=== PATIENT | female | born 1960 | race Caucasian/White ===

== ENCOUNTER 2024-05-20 17:34 | Emergency (ER) | payer OTHER ==
[2024-05-20 18:36] LABS: BASE EXCESS ARTERIAL 0.5 (-2-2.0); BICARBONATE,ARTERIAL 23.3 meq/L (22.0-26.0); O2 SATURATION ARTERIAL 95.8 % (96.0-97.0); PCO2 ARTERIAL 32.9 mmHg (35.0-45.0)
[2024-05-20 18:38] LABS: BASOPHILS ABSOLUTE AUTO 0.1 K/mm3 (0.0-0.2); BASOPHILS PERCENT AUTO 0.3 % (0.0-1.0); EOSINOPHILS ABSOLUTE AUTO 0.2 K/mm3 (0.0-0.4); EOSINOPHILS PERCENT AUTO 1.2 % (0.0-6.0); HEMOGLOBIN 12.4 gm/dl (12.0-16.0); IMMATURE GRAN ABSOLUTE AUTO 0.09 K/mm3 (0.00-0.05); IMMATURE GRAN PERCENT AUTO 0.5 % (0.0-0.4); LYMPHOCYTES ABSOLUTE AUTO 0.7 K/mm3 (1.0-4.8); LYMPHOCYTES PERCENT AUTO 3.9 % (24.0-44.0); MEAN CORPUSCULAR HEMOGLOBIN 28.6 pg (28.0-32.0); MEAN CORPUSCULAR HGB CONC 31.8 g/dl (32.0-36.0); MEAN CORPUSCULAR VOLUME 89.9 fl (83.0-99.0); MEAN PLATELET VOLUME 12.4 fl (9.4-12.3); MONOCYTES ABSOLUTE AUTO 0.9 K/mm3 (0.0-0.8); MONOCYTES PERCENT AUTO 4.6 % (0.0-8.0); NEUTROPHILS ABSOLUTE AUTO 16.9 K/mm3 (1.8-7.7); NEUTROPHILS PERCENT AUTO 89.5 % (41.0-71.0); PLATELET COUNT,PLT 210 K/mm3 (150-400); RED BLOOD CELL COUNT 4.34 M/mm3 (4.10-5.30); WHITE BLOOD CELL COUNT,WBC 18.86 K/mm3 (3.9-11.3)
[2024-05-20 19:10] LABS: LACTIC ACID 2.4 mmol/L (0.4-2.0)
[2024-05-20 19:17] LABS: ALBUMIN 3.7 g/dl (3.4-5.0); BILIRUBIN TOTAL 0.8 mg/dL (0.2-1.0); BUN/CREATININE RATIO 22.9 (14-18); CALCIUM 8.8 mg/dL (8.5-10.1); CREATININE 2.1 mg/dL (0.55-1.02); EST CRCL DRUG DOSING (CG) 22.68 mL/min; MAGNESIUM 1.4 mg/dL (1.8-2.4); PROTEIN TOTAL,TP 7.4 g/dl (6.4-8.2)
[2024-05-20] MEDS ORDERED: Sodium Chloride 0.9% 100 ML IV SCH (20:30)
[2024-05-20] MEDS: Sodium Chloride 0.9% 1,000 ML IV SCH (20:40)
[2024-05-20 20:54] LABS: CORONAVIRUS COVID-19 NAA NEGATIVE (NEGATIVE); INFLUENZA A NAA NEGATIVE (NEGATIVE); RESPIRATORY SYNCYTIAL VIR NAA NEGATIVE (NEGATIVE)
[2024-05-20] MEDS: Iopamidol 755 Mg/ML 100 ML Bottle IVPUSH ONE (21:41)
[2024-05-20] MEDS: cefTRIAXone 1 GM in Sodium Chloride 0.9% 100 ML IV ONE (22:06)
[2024-05-20 22:52] LABS: APPEARANCE,URINE CLEAR (Clear); BILIRUBIN,URINE NEGATIVE (Negative); COLOR,URINE YELLOW (Yellow); GLUCOSE,URINE NEGATIVE (Negative); KETONES,URINE NEGATIVE (Negative); LEUKOCYTE ESTERASE,URINE 2+ (Negative); NITRITE,URINE NEGATIVE (Negative); OCCULT BLOOD,URINE NEGATIVE (Negative); PROTEIN,URINE NEGATIVE (Negative); UROBILINOGEN,URINE 0.2 (0.2-1.0)
[2024-05-20 23:04] LABS: BACTERIA,URINE MODERATE /hpf (FEW); EPITHELIAL CELLS,URINE 0-5 /hpf (0-5); MUCUS,URINE FEW /hpf (FEW); RBC,URINE 0-5 /hpf (0-5); WBC,URINE 30-40 /hpf (0-5)
== END 2024-05-20 23:48 | disposition home or self-care (01) ==
LOC: JD.ED 17:34
DX: R42 Dizziness and giddiness (principal); I11.0 Hypertensive heart disease with heart failure; I50.9 Heart failure, unspecified; Z79.899 Other long term (current) drug therapy
CPT/HCPCS: 0241U; 36415; 36600; 70450; 71045; 71275; 80053; 81001; 82803; 82947; 83605; 83735; 83880; 84484; 85025; 85379; 87040; 87086; 93005; 96361; 96365; 96366; 99285; J0696; J3490; J7030; Q9967; 93010; 99284

== ENCOUNTER 2024-07-09 15:38 | Inpatient (IN) | payer OTHER ==
[2024-07-09] MEDS ORDERED: Sodium Chloride 0.9% 10 ML Syringe FLUSH PRN (16:02)
[2024-07-09 16:27] LABS: HEMATOCRIT 39.6 % (37.0-47.0); HEMOGLOBIN 12.6 gm/dl (12.0-16.0); MEAN CORPUSCULAR HEMOGLOBIN 28.8 pg (28.0-32.0); MEAN CORPUSCULAR HGB CONC 31.8 g/dl (32.0-36.0); MEAN CORPUSCULAR VOLUME 90.4 fl (83.0-99.0); MEAN PLATELET VOLUME 12.3 fl (9.4-12.3); PLATELET COUNT,PLT 219 K/mm3 (150-400); RED BLOOD CELL COUNT 4.38 M/mm3 (4.10-5.30); WHITE BLOOD CELL COUNT,WBC 13.98 K/mm3 (3.9-11.3)
[2024-07-09 16:34] LABS: INR 1.02; PROTHROMBIN TIME 10.8 SECONDS (9.7-12.0)
[2024-07-09 16:55] LABS: LACTIC ACID 1.6 mmol/L (0.4-2.0)
[2024-07-09 16:57] LABS: A/G RATIO 0.7 (1-2); ALANINE AMINOTRANSFERASE,ALT 23 U/L (14-59); ALKALINE PHOSPHATASE 131 U/L (46-116); ANION GAP 16.6 (5-15); ASPARTATE AMNIOTRANSFERASE,AST 16 U/L (15-37); BAND PERCENT MAN 1 % (0-10); BASOPHILS PERCENT MAN 0 (0.1-1.2); BILIRUBIN TOTAL 1.4 mg/dL (0.2-1.0); BLOOD UREA NITROGEN,BUN 19 mg/dL (7-18); BUN/CREATININE RATIO 12.7 (14-18); CALCIUM 8.7 mg/dL (8.5-10.1); CARBON DIOXIDE,CO2 23 mEq/L (21-32); CHLORIDE,CL 105 mEq/L (98-107); CREATININE 1.5 mg/dL (0.55-1.02); EOSINOPHILS PERCENT MAN 1 % (0.7-5.8); EST CRCL DRUG DOSING (CG) 31.76 mL/min; ESTIMATED GFR 39 mL/min (>60); GLUCOSE RANDOM 130 mg/dL (70-99); LYMPHOCYTES % ATYPICAL MANUAL 3 %; LYMPHOCYTES PERCENT MAN 12 % (20-40); MONOCYTES PERCENT MAN 3 % (2-10); POTASSIUM,K 3.6 mEq/L (3.5-5.1); PROTEIN TOTAL,TP 7.2 g/dl (6.4-8.2); SODIUM,NA 141 mEq/L (136-145)
[2024-07-09 16:58] LABS: PLATELET COUNT ESTIMATE ADEQUATE; TOXIC GRANULATION FEW
[2024-07-09 17:11] LABS: C-REACTIVE PROTEIN > 25.00 mg/dL (<0.30)
[2024-07-09] MEDS: Sodium Chloride 0.9% 1,000 ML IV STA (17:14)
[2024-07-09] MEDS: Diltiazem 25 MG/5 ML SDV IVPUSH ONE (17:21)
[2024-07-09 17:30] LABS: CORONAVIRUS COVID-19 NAA NEGATIVE (NEGATIVE); INFLUENZA A NAA NEGATIVE (NEGATIVE); RESPIRATORY SYNCYTIAL VIR NAA NEGATIVE (NEGATIVE)
[2024-07-09] MEDS ORDERED: Diltiazem 125 MG in Sodium Chloride 0.9% 100 ML IV SCH (17:30)
[2024-07-09] MEDS: cefTRIAXone 2 GM in Sodium Chloride 0.9% 100 ML IV ONE (17:39)
[2024-07-09] MEDS ORDERED: Acetaminophen 325 MG Tab PO PRN (18:37)
[2024-07-09 19:28] LABS: TSH 2.501 uIU/mL (0.358-3.74)
[2024-07-09] MEDS: guaiFENesin 600 MG Tab.ER PO SCH (21:46)
[2024-07-09] MEDS: atorvaSTATin 40 MG Tab PO SCH (21:46)
[2024-07-09] MEDS: Heparin Sodium 5,000 Units/ML Vial SUBCUT SCH (21:46)
[2024-07-09] MEDS: Doxycycline 100 MG in Sodium Chloride 0.9% 100 ML IV SCH (21:48)
[2024-07-10 04:51] LABS: BASOPHILS ABSOLUTE AUTO 0.1 K/mm3 (0.0-0.2); BASOPHILS PERCENT AUTO 0.5 % (0.0-1.0); EOSINOPHILS ABSOLUTE AUTO 0.2 K/mm3 (0.0-0.4); EOSINOPHILS PERCENT AUTO 1.5 % (0.0-6.0); HEMATOCRIT 34.1 % (37.0-47.0); IMMATURE GRAN ABSOLUTE AUTO 0.19 K/mm3 (0.00-0.05); IMMATURE GRAN PERCENT AUTO 1.3 % (0.0-0.4); LYMPHOCYTES ABSOLUTE AUTO 1.2 K/mm3 (1.0-4.8); LYMPHOCYTES PERCENT AUTO 8.7 % (24.0-44.0); MEAN CORPUSCULAR HEMOGLOBIN 28.3 pg (28.0-32.0); MEAN CORPUSCULAR HGB CONC 31.7 g/dl (32.0-36.0); MEAN CORPUSCULAR VOLUME 89.5 fl (83.0-99.0); MEAN PLATELET VOLUME 12.2 fl (9.4-12.3); MONOCYTES ABSOLUTE AUTO 1.6 K/mm3 (0.0-0.8); MONOCYTES PERCENT AUTO 11.5 % (0.0-8.0); NEUTROPHILS ABSOLUTE AUTO 10.8 K/mm3 (1.8-7.7); NEUTROPHILS PERCENT AUTO 76.5 % (41.0-71.0); PLATELET COUNT,PLT 178 K/mm3 (150-400); RED BLOOD CELL COUNT 3.81 M/mm3 (4.10-5.30)
[2024-07-10 04:53] LABS: HEMOGLOBIN 10.8 gm/dl (12.0-16.0)
[2024-07-10 05:15] LABS: A/G RATIO 0.7 (1-2); ALANINE AMINOTRANSFERASE,ALT 16 U/L (14-59); ALBUMIN 2.5 g/dl (3.4-5.0); ALKALINE PHOSPHATASE 128 U/L (46-116); ANION GAP 13.9 (5-15); ASPARTATE AMNIOTRANSFERASE,AST 16 U/L (15-37); BILIRUBIN TOTAL 1.1 mg/dL (0.2-1.0); BLOOD UREA NITROGEN,BUN 21 mg/dL (7-18); CALCIUM 8.4 mg/dL (8.5-10.1); CARBON DIOXIDE,CO2 23 mEq/L (21-32); CHLORIDE,CL 107 mEq/L (98-107); CREATININE 1.4 mg/dL (0.55-1.02); EST CRCL DRUG DOSING (CG) 34.02 mL/min; ESTIMATED GFR 42 mL/min (>60); GLUCOSE RANDOM 134 mg/dL (70-99); POTASSIUM,K 3.9 mEq/L (3.5-5.1); PROTEIN TOTAL,TP 6.3 g/dl (6.4-8.2); SODIUM,NA 140 mEq/L (136-145)
[2024-07-10] MEDS: Levothyroxine 25 MCG Tab PO SCH (05:17)
[2024-07-10] MEDS: Albuterol/Ipratropium 3.0-0.5 MG/3 ML Neb Soln NEB PRN (05:25)
[2024-07-10 05:28] LABS: SLIDE REVIEW ABNORMAL SMEAR
[2024-07-10 05:47] LABS: C-REACTIVE PROTEIN > 25.00 mg/dL (<0.30)
[2024-07-10] MEDS: ARIPiprazole 5 MG Tab PO SCH (08:27)
[2024-07-10] MEDS: DULoxetine 30 MG Cap PO SCH (08:27)
[2024-07-10] MEDS: Aspirin 81 MG Tab.EC PO SCH (08:28)
[2024-07-10] MEDS ORDERED: Enoxaparin 40 MG/0.4 ML Syringe SUBCUT SCH (09:00)
[2024-07-10] MEDS: Torsemide 20 MG Tab PO SCH (11:19)
[2024-07-10] MEDS: Magnesium Sulfate/Water Premix 2 GM in Premix Bag 1 BAG IV ONE (15:48)
[2024-07-10] MEDS: cefTRIAXone 1 GM Vial IM SCH (18:09)
[2024-07-10 19:06] LABS: APPEARANCE,URINE CLEAR (Clear); BILIRUBIN,URINE 1+ (Negative); COLOR,URINE AMBER (Yellow); GLUCOSE,URINE NEGATIVE (Negative); KETONES,URINE TRACE (Negative); LEUKOCYTE ESTERASE,URINE NEGATIVE (Negative); NITRITE,URINE NEGATIVE (Negative); OCCULT BLOOD,URINE NEGATIVE (Negative); PH,URINE 5.5 (5.0-8.0); PROTEIN,URINE 1+ (Negative)
[2024-07-10 19:19] LABS: BACTERIA,URINE MANY /hpf (FEW); MUCUS,URINE FEW /hpf (FEW); RBC,URINE 0-5 /hpf (0-5)
[2024-07-10] MEDS: cefTRIAXone 1 GM in Sodium Chloride 0.9% 100 ML IV SCH (19:35)
[2024-07-11] MEDS: Metoprolol Tartrate 5 MG/5 ML SDV IVPUSH ONE ×3 (00:19→05:21)
[2024-07-11] MEDS: Diltiazem 25 MG/5 ML SDV IVPUSH ONE ×2 (01:01→08:27)
[2024-07-11 05:52] LABS: BASOPHILS ABSOLUTE AUTO 0.1 K/mm3 (0.0-0.2); BASOPHILS PERCENT AUTO 0.9 % (0.0-1.0); EOSINOPHILS ABSOLUTE AUTO 0.5 K/mm3 (0.0-0.4); EOSINOPHILS PERCENT AUTO 4.4 % (0.0-6.0); HEMATOCRIT 35.2 % (37.0-47.0); IMMATURE GRAN PERCENT AUTO 2.6 % (0.0-0.4); LYMPHOCYTES ABSOLUTE AUTO 1.2 K/mm3 (1.0-4.8); LYMPHOCYTES PERCENT AUTO 10.2 % (24.0-44.0); MEAN CORPUSCULAR HEMOGLOBIN 28.2 pg (28.0-32.0); MEAN CORPUSCULAR HGB CONC 31.3 g/dl (32.0-36.0); MEAN CORPUSCULAR VOLUME 90.3 fl (83.0-99.0); MEAN PLATELET VOLUME 12.7 fl (9.4-12.3); MONOCYTES ABSOLUTE AUTO 1.1 K/mm3 (0.0-0.8); NEUTROPHILS ABSOLUTE AUTO 8.6 K/mm3 (1.8-7.7); NEUTROPHILS PERCENT AUTO 72.9 % (41.0-71.0); PLATELET COUNT,PLT 209 K/mm3 (150-400); WHITE BLOOD CELL COUNT,WBC 11.71 K/mm3 (3.9-11.3)
[2024-07-11 06:19] LABS: A/G RATIO 0.6 (1-2); ALANINE AMINOTRANSFERASE,ALT 21 U/L (14-59); ALBUMIN 2.5 g/dl (3.4-5.0); ALKALINE PHOSPHATASE 140 U/L (46-116); ANION GAP 16.6 (5-15); ASPARTATE AMNIOTRANSFERASE,AST 21 U/L (15-37); BILIRUBIN TOTAL 0.6 mg/dL (0.2-1.0); BLOOD UREA NITROGEN,BUN 28 mg/dL (7-18); BUN/CREATININE RATIO 16.5 (14-18); CALCIUM 8.5 mg/dL (8.5-10.1); CARBON DIOXIDE,CO2 22 mEq/L (21-32); CHLORIDE,CL 101 mEq/L (98-107); CREATININE 1.7 mg/dL (0.55-1.02); EST CRCL DRUG DOSING (CG) 28.02 mL/min; ESTIMATED GFR 33 mL/min (>60); GLUCOSE RANDOM 131 mg/dL (70-99); POTASSIUM,K 3.6 mEq/L (3.5-5.1); PROTEIN TOTAL,TP 6.6 g/dl (6.4-8.2); SODIUM,NA 136 mEq/L (136-145)
[2024-07-11 06:29] LABS: C-REACTIVE PROTEIN > 25.00 mg/dL (<0.30)
[2024-07-11] MEDS: Apixaban 5 MG Tab PO SCH (08:09)
[2024-07-11] MEDS: Furosemide 40 MG/4 ML VIAL IVPUSH ONE ×2 (08:11→08:20)
[2024-07-11] MEDS: Magnesium Sulfate/Water Premix 4 GM in Premix Bag 1 BAG IV ONE (08:17)
[2024-07-11] MEDS: Diltiazem 120 MG Cap.CD PO SCH (11:54)
[2024-07-11] MEDS: Pantoprazole 40 MG Tab.CR PO ONE (19:46)
[2024-07-12 05:48] LABS: BASOPHILS ABSOLUTE AUTO 0.1 K/mm3 (0.0-0.2); BASOPHILS PERCENT AUTO 0.9 % (0.0-1.0); EOSINOPHILS ABSOLUTE AUTO 0.4 K/mm3 (0.0-0.4); EOSINOPHILS PERCENT AUTO 3.3 % (0.0-6.0); HEMATOCRIT 32.9 % (37.0-47.0); HEMOGLOBIN 10.6 gm/dl (12.0-16.0); IMMATURE GRAN ABSOLUTE AUTO 0.59 K/mm3 (0.00-0.05); IMMATURE GRAN PERCENT AUTO 4.9 % (0.0-0.4); LYMPHOCYTES ABSOLUTE AUTO 1.2 K/mm3 (1.0-4.8); LYMPHOCYTES PERCENT AUTO 10.2 % (24.0-44.0); MEAN CORPUSCULAR HEMOGLOBIN 28.3 pg (28.0-32.0); MEAN CORPUSCULAR HGB CONC 32.2 g/dl (32.0-36.0); MEAN PLATELET VOLUME 12.2 fl (9.4-12.3); MONOCYTES ABSOLUTE AUTO 1.2 K/mm3 (0.0-0.8); MONOCYTES PERCENT AUTO 10.3 % (0.0-8.0); NEUTROPHILS ABSOLUTE AUTO 8.5 K/mm3 (1.8-7.7); NEUTROPHILS PERCENT AUTO 70.4 % (41.0-71.0); PLATELET COUNT,PLT 225 K/mm3 (150-400); RED BLOOD CELL COUNT 3.74 M/mm3 (4.10-5.30); WHITE BLOOD CELL COUNT,WBC 12.06 K/mm3 (3.9-11.3)
[2024-07-12] MEDS: Pantoprazole 40 MG Tab.CR PO SCH (06:06)
[2024-07-12 06:11] LABS: A/G RATIO 0.6 (1-2); ALBUMIN 2.5 g/dl (3.4-5.0); ANION GAP 15.3 (5-15); BILIRUBIN TOTAL 0.5 mg/dL (0.2-1.0); BUN/CREATININE RATIO 20.6 (14-18); C-REACTIVE PROTEIN 21.4 mg/dL (<0.30); CALCIUM 8.7 mg/dL (8.5-10.1); CREATININE 1.7 mg/dL (0.55-1.02); EST CRCL DRUG DOSING (CG) 28.02 mL/min; POTASSIUM,K 3.3 mEq/L (3.5-5.1); PROTEIN TOTAL,TP 6.9 g/dl (6.4-8.2)
[2024-07-12 06:18] LABS: SLIDE REVIEW ABNORMAL SMEAR
[2024-07-12] MEDS: Diltiazem 240 MG Cap.ER PO SCH (08:10)
[2024-07-12] MEDS: Spironolactone 25 MG Tab PO SCH (08:11)
[2024-07-12] MEDS: Furosemide 40 MG/4 ML VIAL IVPUSH SCH (09:06)
[2024-07-12] MEDS: Metoprolol Tartrate 5 MG/5 ML SDV IV ONE (10:24)
[2024-07-12] MEDS: Metoprolol Tartrate 5 MG in Sodium Chloride 0.9% 50 ML IV ONE (10:34)
[2024-07-12] MEDS: Furosemide 40 MG/4 ML VIAL IVPUSH ONE (15:17)
[2024-07-12] MEDS: Diltiazem 25 MG/5 ML SDV IVPUSH ONE ×2 (17:54→19:25)
[2024-07-12] MEDS: Metolazone 2.5 MG Tab PO ONE (19:18)
[2024-07-12] MEDS: Diltiazem 125 MG in Sodium Chloride 0.9% 100 ML IV SCH (19:48)
[2024-07-13 05:34] LABS: BASOPHILS ABSOLUTE AUTO 0.1 K/mm3 (0.0-0.2); BASOPHILS PERCENT AUTO 0.4 % (0.0-1.0); EOSINOPHILS ABSOLUTE AUTO 0.4 K/mm3 (0.0-0.4); EOSINOPHILS PERCENT AUTO 2.8 % (0.0-6.0); HEMOGLOBIN 10.8 gm/dl (12.0-16.0); IMMATURE GRAN ABSOLUTE AUTO 0.93 K/mm3 (0.00-0.05); IMMATURE GRAN PERCENT AUTO 7.1 % (0.0-0.4); LYMPHOCYTES ABSOLUTE AUTO 1.4 K/mm3 (1.0-4.8); LYMPHOCYTES PERCENT AUTO 10.6 % (24.0-44.0); MEAN CORPUSCULAR HEMOGLOBIN 27.8 pg (28.0-32.0); MEAN CORPUSCULAR HGB CONC 31.8 g/dl (32.0-36.0); MEAN CORPUSCULAR VOLUME 87.4 fl (83.0-99.0); MEAN PLATELET VOLUME 12.5 fl (9.4-12.3); MONOCYTES ABSOLUTE AUTO 1.5 K/mm3 (0.0-0.8); MONOCYTES PERCENT AUTO 11.2 % (0.0-8.0); NEUTROPHILS ABSOLUTE AUTO 8.9 K/mm3 (1.8-7.7); NEUTROPHILS PERCENT AUTO 67.9 % (41.0-71.0); PLATELET COUNT,PLT 247 K/mm3 (150-400); RED BLOOD CELL COUNT 3.89 M/mm3 (4.10-5.30); WHITE BLOOD CELL COUNT,WBC 13.16 K/mm3 (3.9-11.3)
[2024-07-13 05:46] LABS: A/G RATIO 0.6 (1-2); ALBUMIN 2.5 g/dl (3.4-5.0); ANION GAP 14.1 (5-15); BILIRUBIN TOTAL 0.5 mg/dL (0.2-1.0); BUN/CREATININE RATIO 21.1 (14-18); C-REACTIVE PROTEIN 16.67 mg/dL (<0.30); CALCIUM 8.8 mg/dL (8.5-10.1); CREATININE 1.9 mg/dL (0.55-1.02); EST CRCL DRUG DOSING (CG) 25.07 mL/min; POTASSIUM,K 3.1 mEq/L (3.5-5.1)
[2024-07-13 06:21] LABS: SLIDE REVIEW ABNORMAL SMEAR
[2024-07-13] MEDS: Potassium Chloride 20 MEQ Tab.ER PO SCH (08:39)
[2024-07-13] MEDS ORDERED: Metoclopramide 10 MG/2 ML SDV IVPUSH ONE (18:37)
[2024-07-13] MEDS: Metoprolol Tartrate 25 MG Tab PO SCH (18:47)
[2024-07-13] MEDS: Metoprolol Tartrate 5 MG/5 ML SDV IVPUSH ONE (18:53)
[2024-07-14 04:46] LABS: HEMATOCRIT 37.1 % (37.0-47.0); HEMOGLOBIN 11.8 gm/dl (12.0-16.0); MEAN CORPUSCULAR HEMOGLOBIN 28.1 pg (28.0-32.0); MEAN CORPUSCULAR HGB CONC 31.8 g/dl (32.0-36.0); MEAN CORPUSCULAR VOLUME 88.3 fl (83.0-99.0); MEAN PLATELET VOLUME 12.5 fl (9.4-12.3); PLATELET COUNT,PLT 217 K/mm3 (150-400); WHITE BLOOD CELL COUNT,WBC 12.68 K/mm3 (3.9-11.3)
[2024-07-14 05:49] LABS: A/G RATIO 0.6 (1-2); ALBUMIN 2.6 g/dl (3.4-5.0); ANION GAP 15.5 (5-15); BILIRUBIN TOTAL 0.5 mg/dL (0.2-1.0); BUN/CREATININE RATIO 23.3 (14-18); C-REACTIVE PROTEIN 13.8 mg/dL (<0.30); CREATININE 1.8 mg/dL (0.55-1.02); EST CRCL DRUG DOSING (CG) 26.46 mL/min; MAGNESIUM 1.9 mg/dL (1.8-2.4); POTASSIUM,K 3.5 mEq/L (3.5-5.1); PROTEIN TOTAL,TP 7.2 g/dl (6.4-8.2)
[2024-07-15 05:37] LABS: HEMATOCRIT 36.4 % (37.0-47.0); HEMOGLOBIN 11.4 gm/dl (12.0-16.0); MEAN CORPUSCULAR HEMOGLOBIN 28.3 pg (28.0-32.0); MEAN CORPUSCULAR HGB CONC 31.3 g/dl (32.0-36.0); MEAN CORPUSCULAR VOLUME 90.3 fl (83.0-99.0); MEAN PLATELET VOLUME 12.4 fl (9.4-12.3); PLATELET COUNT,PLT 251 K/mm3 (150-400); RED BLOOD CELL COUNT 4.03 M/mm3 (4.10-5.30); WHITE BLOOD CELL COUNT,WBC 13.88 K/mm3 (3.9-11.3)
[2024-07-15 05:45] LABS: A/G RATIO 0.6 (1-2); ALBUMIN 2.5 g/dl (3.4-5.0); ANION GAP 13.6 (5-15); BILIRUBIN TOTAL 0.4 mg/dL (0.2-1.0); BUN/CREATININE RATIO 27.9 (14-18); C-REACTIVE PROTEIN 8.81 mg/dL (<0.30); CALCIUM 9.1 mg/dL (8.5-10.1); CREATININE 1.4 mg/dL (0.55-1.02); EST CRCL DRUG DOSING (CG) 34.02 mL/min; MAGNESIUM 1.8 mg/dL (1.8-2.4); POTASSIUM,K 3.6 mEq/L (3.5-5.1); PROTEIN TOTAL,TP 6.9 g/dl (6.4-8.2)
== END 2024-07-15 10:40 | disposition home or self-care (01) | DRG 871 ==
LOC: JD.ED 15:38 → JD.MS 18:38 → JD.ICU 07-12 20:57
PROVIDERS: ADMIT Family Medicine; ATTEND Internal Medicine
DX: A41.9 Sepsis, unspecified organism (principal); J18.9 Pneumonia, unspecified organism; J96.01 Acute respiratory failure with hypoxia; Z68.44 Body mass index [BMI] 60.0-69.9, adult; N17.9 Acute kidney failure, unspecified; I13.0 Hypertensive heart and chronic kidney disease with heart failure and stage 1 through stage 4 chronic kidney disease, or unspecified chronic kidney disease; I48.92 Unspecified atrial flutter; K21.9 Gastro-esophageal reflux disease without esophagitis; E03.9 Hypothyroidism, unspecified; I48.91 Unspecified atrial fibrillation; E66.9 Obesity, unspecified; F32.A Depression, unspecified; M19.90 Unspecified osteoarthritis, unspecified site; E78.00 Pure hypercholesterolemia, unspecified; I50.9 Heart failure, unspecified; E83.42 Hypomagnesemia; N18.9 Chronic kidney disease, unspecified; Z79.82 Long term (current) use of aspirin; Z86.16 Personal history of COVID-19; Z90.49 Acquired absence of other specified parts of digestive tract; Z79.01 Long term (current) use of anticoagulants; Z79.890 Hormone replacement therapy; Z79.899 Other long term (current) drug therapy; Z90.710 Acquired absence of both cervix and uterus; Z98.890 Other specified postprocedural states
CPT/HCPCS: 0241U; 36410; 36415; 71046; 71046-26; 80053; 81001; 83605; 83735; 83880; 84443; 84484; 85007; 85025; 85027; 85610; 86140; 87040; 87899; 93005; 93010; 93306; 94640; 94760; 94761; 99223; 99232; 99233; 99285; A9270-GY; J0696; J1644; J1940; J3475; J3490; J7030; J7620-GY